=== PATIENT | female | born 1980 | race Caucasian/White ===

== ENCOUNTER 2017-01-23 12:28 | Emergency (ER) | payer SELFPAY ==
[~2017-01-23] VITALS: Ht 167.6 cm; Wt 79.5 kg
[~2017-01-23 12:28] MED LIST: BACTRIM DS 8001 TAB PO; CEPHALEXIN500 M1 PO; LORTAB 5/500 501 TAB PO; MOTRIN 800800 MG/TAB PO; NO HOME MEDICATIONS; NORCO 325 MG-51 TAB PO; NORCO 325 MG-7.1 TAB PO; NORCO PO; OMNICEF 300MG300 MG PO; TYLENOL PM EXTR1 TA1; ZOFRAN 4MG T4 MG/TAB PO
[2017-01-23 12:35] VITALS: TEMP 98.7
[2017-01-23] MEDS ORDERED: NORCO 325 MG-51 TAB PO (15:45)
[2017-01-23 15:58] VITALS: BP 118/73; PULSE 85
== END 2017-01-23 16:02 | disposition home or self-care (01) ==
LOC: COL.ER 12:28
DX: S92.312A Displaced fracture of first metatarsal bone, left foot, initial encounter for closed fracture (principal); W01.198A Fall on same level from slipping, tripping and stumbling with subsequent striking against other object, initial encounter
CPT/HCPCS: J3010

== ENCOUNTER 2017-02-24 23:36 | Emergency (ER) | payer SELFPAY ==
[~2017-02-24] VITALS: Ht 152.4 cm; Wt 63.6 kg
[2017-02-24 23:39] VITALS: TEMP 99.1
[2017-02-25 01:48] VITALS: BP 130/88; PULSE 92
== END 2017-02-25 01:40 | disposition home or self-care (01) ==
LOC: COL.ER 23:36
DX: T74.11XA Adult physical abuse, confirmed, initial encounter (principal); S02.2XXA Fracture of nasal bones, initial encounter for closed fracture; S40.012A Contusion of left shoulder, initial encounter; S80.211A Abrasion, right knee, initial encounter; F17.210 Nicotine dependence, cigarettes, uncomplicated; Y07.9 Unspecified perpetrator of maltreatment and neglect; Y04.2XXA Assault by strike against or bumped into by another person, initial encounter

== ENCOUNTER 2020-12-22 08:28 | Emergency (ER) | payer MEDICAID ==
[~2020-12-22] VITALS: Ht 152.4 cm; Wt 90.9 kg
[2020-12-22 08:30] VITALS: TEMP 97.7
[2020-12-22 09:29] LABS: ARTERIAL BLD GAS O2 SATURATION 91.4 % (92-100); ARTERIAL BLD GAS TCO2 CT 25.1; ARTERIAL BLOOD GAS BASE EXCESS -1.3 (-2-2); ARTERIAL BLOOD GAS HCO3 23.8 meq/L (22-26); ARTERIAL BLOOD GAS PCO2 41.4 mmHg (35-45); ARTERIAL BLOOD GAS PO2 58.5 mmHg (80-100); ARTERIAL BLOOD GAS pH 7.38 (7.35-7.45)
[2020-12-22 10:18] LABS: COLLECTION METHOD CLEAN CATCH
[2020-12-22 10:21] LABS: BASO # 0.1 (0.0-0.2); BASO % 0.4 % (0.0-2.0); EOS # 0.1 (0.0-0.7); EOS % 1.1 % (0-4.0); GRAN # 8.5 (1.4-6.5); HEMATOCRIT 37.6 % (37.0-47.0); HEMOGLOBIN 12.2 g/dl (12.5-16.0); LYMPH # 2.5 (1.2-3.4); LYMPH % 21.1 % (20.0-51.0); MEAN CELL VOLUME 90 fl (80.0-100.0); MEAN CORPUSCULAR HEMOGLOBIN 29 pg (27.0-31.0); MEAN CORPUSCULAR HGB CONC 32 g/dl (33.0-37.0); MEAN PLATELET VOLUME 11.1 fl (7.4-10.4); MONO # 0.7 (0.1-0.6); MONO % 5.9 % (1.7-9.3); PLATELET COUNT 280 K/mm3 (130-400); REDCELL DISTRIBUTION WIDTH-CV 13.6 % (11.5-14.5)
[2020-12-22 10:29] LABS: ALANINE AMINOTRANSFERASE 17 U/L (4-34); ALKALINE PHOSPHATASE 111 U/L (50-136); ANION GAP 5 mmol/L (7-16); AST,SGOT 32 U/L (15-37); BILIRUBIN,TOTAL < 0.1 mg/dL (0.0-1.0); BLOOD UREA NITROGEN 13 mg/dL (7-17); CARBON DIOXIDE 27 mmol/L (22-30); CHLORIDE 106 mmol/L (98-107); CREATININE, serum 0.67 (0.52-1.25); GLUCOSE 100 mg/dL (74-106); LIPASE 227 U/L (23-300); POTASSIUM 4.8 mmol/L (3.4-5.0); SODIUM 138 mmol/L (137-145); TOTAL PROTEIN 7.3 gm/dL (6.4-8.2)
[2020-12-22 10:30] LABS: ALCOHOL(ethanol),MEDICAL < 10 mg/dL
[2020-12-22 10:34] LABS: PH 6 (5-8); URINE APPEARANCE Clear; URINE BACTERIA None Seen /hpf; URINE BILIRUBIN Negative (NEGATIVE); URINE BLOOD Negative (NEGATIVE); URINE COLOR Yellow; URINE GLUCOSE Negative (NEGATIVE); URINE KETONE Negative (NEGATIVE); URINE LEUKOCYTE ESTERASE Negative (NEGATIVE); URINE NITRATE Negative (NEGATIVE); URINE PROTEIN(semi-quant) Negative (NEGATIVE); URINE RBC 0-2 /hpf; URINE UROBILINOGEN Negative (NEGATIVE)
[2020-12-22 10:48] LABS: TRICYCLIC ANTIDEPRESS URINE NEGATIVE
[2020-12-22 11:07] LABS: PROLACTIN 19.7 ng/mL (3.0-18.6)
[2020-12-22 11:16] VITALS: BP 130/88; PULSE 77
== END 2020-12-22 11:16 ==
LOC: COL.ER 08:28
PROVIDERS: Emergency Medicine
DX: Z04.1 Encounter for examination and observation following transport accident (principal); Z02.89 Encounter for other administrative examinations; T14.8XXA Other injury of unspecified body region, initial encounter; R07.9 Chest pain, unspecified; M25.551 Pain in right hip; M25.511 Pain in right shoulder; M79.604 Pain in right leg; V43.52XA Car driver injured in collision with other type car in traffic accident, initial encounter